=== PATIENT | female | born 1990 | race Two or more races ===

== ENCOUNTER 2024-09-04 07:50 | Day surgery (SDC) | payer MEDICAID, SELFPAY ==
[2024-09-03 09:17] VITALS: BMI 36.8
[2024-09-03 10:27] LABS: Basophils % (Auto) 1 % (0-2.5); Eosinophils # (Auto) 0.1 Thou/mm3 (0.0-0.5); Eosinophils % (Auto) 1 % (0-10); Hematocrit 41.2 % (36.0-46.0); Hemoglobin 13.9 g/dL (12.0-16.0); Immature Granulocytes % (Auto) 1 % (0-0); Immature Granulocytes Auto 0.04 Thou/mm3 (0.00-0.00); Lymphocytes # (Auto) 2.1 Thou/mm3 (1.0-4.8); Lymphocytes % (Auto) 27 % (10-50); Mean Corpuscular HGB Conc 33.7 g/dl (31.0-37.0); Mean Corpuscular Hemoglobin 28.6 pg (25.0-35.0); Mean Corpuscular Volume 85 fL (80-100); Monocytes # (Auto) 0.4 Thou/mm3 (0.0-0.8); Monocytes % (Auto) 6 % (0-12); Neutrophils % (Auto) 66 % (37-80); Nucleated Red Blood Cell % 0 /100 WBC (0); Platelet Count 264 Thou/mm3 (140-440); RDW Standard Deviation 39.8 fL (36.4-46.3); Red Blood Count 4.86 Miln/mm3 (4.00-5.20); White Blood Count 7.6 Thou/mm3 (3.6-11.0)
[2024-09-03 10:54] LABS: Beta HCG,Quantitative < 1 mIU/mL (<5.0)
[2024-09-03 11:31] LABS: Hepatitis A Antibody IgM Non Reactive (Non React); Hepatitis B Core Antibody IgM Non Reactive (Non React); Hepatitis B Surface Antigen Non Reactive (Non React); Hepatitis C Antibody Non Reactive (Non React)
[2024-09-03 11:55] LABS: HIV (1&2) Antibody Rapid Non-Reactive
[2024-09-04] VITALS (9 sets, daily range): BP systolic 105–133; BP diastolic 74–102; PULSE 71–94; RESP 12–20; TEMP 36.2–36.6; O2SAT 95–100; BMI 36.8
--- NOTE | 2024-09-04 11:27 | ESHP_ITS ---
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 SIMMS is a 34 year old female para 1 admitted for a diagnostic laparoscopy ovarian cystectomy. Patient has been following up in the clinic for past 6 months for an incidental discovery of an ovarian cyst on her left side. On repeat ultrasound 6 months later the cyst is persistent in size about 7 cm. Given the fact the patient has been having dull aching pain which increases during her.'s and is symptomatic during sexual activity surgery is planned for removal of the cyst. 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 Vital Signs Temp Pulse Resp BP Pulse Ox 97.8 F 85 14 126/94 H 96 09/04/24 08:20 09/04/24 08:20 09/04/24 08:20 09/04/24 08:20 09/04/24 08:20 Constitutional Constitutional: no acute distress Routine HEENT Exam Head: Present normocephalic and atraumatic Eye: Present EOMI and PERRL ENT: Present mucous membranes moist Routine Neck Exam Neck: Present supple and trachea midline Routine Respiratory Exam Respiratory: Present chest non-tender, lungs clear, normal breath sounds and no resp distress Routine Cardiovascular Exam Cardiovascular: Present RRR Routine Abdominal Exam Abdominal: Present soft and normoactive bowel sounds Routine Extremities Exam Extremities: Present full ROM Routine Skin Exam Skin: Present intact and dry Routine Neurological Exam Neurological: Present alert, oriented X3 and CN II-XII intact Routine Psychiatric Exam Psychiatric: Present normal affect and normal thought process 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 - Results Labs 09/03/24 09:40 Impressions Impression: 34-year-old para 1 admitted for diagnostic laparoscopy, left ovarian cystectomy, possible oophorectomy, possible laparotomy Ultrasound showing persistence of 7 cm cyst on the left ovary, images reviewed appears to be simple Both the possibility of surgery and expectant management was discussed with the patient Risk of surgery including infection, bleeding, injury to neighboring organs, risk of conversion of laparotomy was also discussed Risk of oophorectomy in cases of persistent bleeding from the ovary was also discussed Patient agrees to proceed with the surgery and understands all the complications that can happen Assessment and Plan Additional Assessment & Plan Additional Plan: Diagnostic laparoscopy left ovarian cystectomy, possible oophorectomy, possible laparotomy DVT prophylaxis Quality Measures Quality Measures VTE prophylaxis
--- NOTE | 2024-09-04 13:04 | ESOP_ITS ---
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 General anesthesia was given without any complications.? A time out was given confirming Sandra Doss was undergoing the following, procedure,allergies, and surgeon.The patient was positioned in the dorsal lithotomy position. The bladder was emptied. The perineum was prepped with Betadine solution per routine.The abdomen was prepped with DuraPrep. Attention was then focused to the vagina.? A sponge placed in a ring forceps was placed in the posterior fornix and used as a uterine manipulator.? The surgeon then changed gloves to continue proper sterile technique. Attention was diverted to the abdomen. An umblical incision was first made, Two towel clips were placed lateral to the umbilicus in order to elevate the abdominal wall.? A hemostat was used to assess the depth to the fascia. While applying countertraction by lifting the towel clips, a Veress needle was used to enter the peritoneal cavity, a initial abdominal pressure of 2 mmHg was noted upon entry. Veress needle used for initial pneumoperitoneum establishment. 5 mm port used for the direct trocar entry the abdomen was then insufflated with CO2 gas to 15mmHg, under the opti-view system was advanced into the peritoneal entry.? The Right lower quadrant was evaluated and a 5-mm incision was made . 5-mm trocar placed under camera surveillance.? Left side evaluated and a 10mm trocar inserted under optiview surveillance. On observation: Normal right side ovary and tube was seen on the left side a large close to 10 cm ovarian cyst engulfing the whole of ovary distinct from the fallopian tube was seen. On careful examination there were no normal ovarian tissue identified. Using Enseal device utero-ovarian ligament was coagulated and cut and meso ovary was progressively coagulated and cut releasing the left ovarian cyst. Again no normal ovarian tissue could be identified and the cyst wall. Using an Endo Catch bag the cyst unruptured was transferred inside the bag making sure no leaks happen outside needle tip was inserted to aspirate the fluid from the cyst while within the bag. The Endo Catch bag was sealed and removed through the 10 mm port. Hemostasis was ensured and the [place]. Surgicel powder was sprayed on the oozing stump. Now the 10 mm port was closed using a fascial closure device using Channing Mock needle. Pneumoperitoneum was slowly emptied, no bleeding was seen on the mesovarium stump. Uterus appeared bulky the right side ovary and tubes were again examined to be healthy. Left side tube was left in tach as patient desires a future . no peritoneal pathology identified Estimated blood loss (ml): 10 Surgical staff Operation Date: 09/04/24 10:00 Case Staff HYDRO PLANT TECHNICIAN: Eligio Joseph RNfumigator and sterilizer: Moira Dias Diagnosis Problem List Completed Was Problem List Reviewed/Reconciled?: Yes
--- NOTE | 2024-09-04 13:19 | SUR.PHASEI ---
pt received from OR in recovery bay 7. pt obtunded, breathing unlabored on oxymask 8l, oral airway in place. v/s stable. pt dressing to abd dermabond x3 cdi. report received from [facility] and [facility] YBARRA.
[2024-09-04] MEDS: ACETAMINOPHEN IVPB 1,000 MG/100 ML VIAL 250 MG IV (13:38)
[2024-09-04] MEDS: fentaNYL CIT INJ 50 mCg/ML AMP 2ML IV ×2 (13:43→14:13)
--- NOTE | 2024-09-04 14:17 | SUR.PHASEII ---
pt able to tolerate oral fluids without difficulty swallowing or nausea/vomiting.
--- NOTE | 2024-09-04 14:47 | SUR.PHASEII ---
pt awake and alert, breathing unlabored on room air. v/s stable. pt dressing to abd dermabond x3 cdi. pt able to ambulate to wheelchair with steady gait. d/c instructions given with Prashanth in room, all questions answered. pt d/c via wheelchair with all belongings.
== END 2024-09-04 14:47 | disposition home or self-care (01) ==
PROVIDERS: PCP Family Medicine; Referring Provider Student in an Organized Health Care Education/Training Program; Visit Provider Student in an Organized Health Care Education/Training Program
PROC: (CPT 58662; principal; 2024-09-04 09:45)
DX: D27.1 Benign neoplasm of left ovary (principal)
CPT/HCPCS: 58661; 36415; 80074; 84702; 85025; 86703; 86850; 86900; 86901; A4217; A4649; J0131; J1100; J1171; J2250; J2405; J2704; J3010; J3490